=== PATIENT | male | born 1975 | race Caucasian/White ===

== ENCOUNTER 2016-07-12 11:29 | Emergency (ER) | payer OTHER ==
[2016-07-12 11:36] VITALS: TEMP 97.7
--- NOTE | 2016-07-12 12:18 | EDPHY ---
H & P Time Seen by Provider: 07/12/16 11:38 HPI/ROS: CHIEF COMPLAINT: right pinky finger injury HISTORY OF PRESENT ILLNESS: 40-year-old male presents to the emergency department with right pinky finger injury after a slip and fall on ice today. Patient reports he felt like he had a deformity that he pulled on immediately and it went in to place. Tetanus is up-to-date, he is [id number], denies head strike, no neck pain, no other injuries or complaints. Smoking Status: Never smoked Physical Exam: GEN: Awake, alert, oriented, no acute distress RESP: nl resp effort MSK: Full range of motion of right pinky finger against resistance, tenderness to palpation at the DIP joint with swelling, distal fingernail avulsed with abrasion to tip of finger. Sensation intact to light touch, cap refill less than 2 seconds. No wrist pain, no snuffbox tenderness 2+ radial pulses. Constitutional: Initial Vital Signs Temperature (C) 36.5 C 07/12/16 11:34 Heart Rate 94 07/12/16 11:34 Respiratory Rate 16 07/12/16 11:34 Blood Pressure 138/95 H 07/12/16 11:34 O2 Sat (%) 96 07/12/16 11:34 O2 Delivery Mode Room Air Allergies/Adverse Reactions: No Known Allergies Allergy (Unverified 07/12/16 11:33) Home Medications: Medication Instructions Recorded NK [No Known Home Meds] 07/12/16 MDM/Departure - MDM Diagnostics: Right pinky finger x-ray independently reviewed by kyra Horne fracture proximal aspect of distal phalanx dorsal Procedures: Right pinky finger digitally blocked with 5 mL of 1% lidocaine without epinephrine, finger abrasion and fingernail cleaned by emergency department medical instrument technician, dressing placed and finger splint put in place. - Depart Disposition: Home, Routine, Self-Care Clinical Impression: Fracture of distal phalanx of right little finger Qualifiers: Encounter type: initial encounter Fracture type: closed Fracture alignment: displaced Qualifier Code: (S62.636A) Displaced fracture of distal phalanx of right little finger, initial encounter for closed fracture Abrasion of right little finger Qualifiers: Encounter type: initial encounter Qualifier Code: (S60.416A) Abrasion of right little finger, initial encounter Condition: Good Instructions: Finger Fracture (ED), Acute Wound Care (ED) Additional Instructions: Rest, ice, elevate, take 600 mg of ibuprofen every 8 hours with food for 3-5 days for pain and swelling, follow up with the hand surgeon at 1st available appointment, call to schedule this. Referrals: Yesenia Lombardo MD [Medical Doctor] - As per Instructions (Hand surgeon on-call)
--- NOTE | 2016-07-12 12:43 | DX ---
Right Fifth Finger, Three Views History: Pain post trauma. Fall while hiking. Injury to the tuft. Findings: The distal portion of the distal phalanx is normal. The DIP joint is normally aligned. Ther e is however a small calcification or ossification along the dorsal aspect of the head of the middle phalanx that may represent an acute avulsion of the DIP joint. Impression: 1. Normal tuft of the distal phalanx. 2. Dorsal avulsion of the DIP joint of unknown age. Correlation with the site of symptoms and current range of motion is suggested.
[2016-07-12 13:09] VITALS: BP 137/91; PULSE 84; RESP 18; O2SAT 97
== END 2016-07-12 13:07 | disposition home or self-care (01) ==
PROC: 3E0T3CZ (ICD-10-PCS; principal; 2016-07-12)
DX: S62.636A Displaced fracture of distal phalanx of right little finger, initial encounter for closed fracture (principal); S60.416A Abrasion of right little finger, initial encounter; W00.0XXA Fall on same level due to ice and snow, initial encounter
CPT/HCPCS: L3925